=== PATIENT | male | born 1945 | race Caucasian/White ===

== ENCOUNTER 2019-01-19 08:07 | Inpatient (IN) | payer MEDICARE ==
[2019-01-17 11:15] LABS: BASOPHILS # (AUTO) 0.01 x10^3/uL (0-0.1); BASOPHILS % (AUTO) 0 % (0-1); EOSINOPHILS # (AUTO) 0.12 x10^3/uL (0-0.4); EOSINOPHILS % (AUTO) 2 % (1-7); LYMPHOCYTES # (AUTO) 1.39 x10^3/uL (1-3.4); LYMPHOCYTES % (AUTO) 22 % (22-44); MD NO; MEAN CORPUSCULAR HEMOGLOBIN 22.5 pg (27.5-34.5); MEAN CORPUSCULAR HGB CONC 31.5 g/dL (33.2-36.2); MEAN CORPUSCULAR VOLUME 71.3 fL (81-97); MEAN PLATELET VOLUME 10.4 fL (7.4-10.4); MONOCYTES # (AUTO) 0.75 x10^3/uL (0.2-0.8); MONOCYTES % (AUTO) 12 % (2-9); NEUTROPHILS # (AUTO) 4.13 x10^3/uL (1.8-6.8); NEUTROPHILS % (AUTO) 65 % (42-75); PLATELET COUNT 196 x10^3/uL (130-400); RED BLOOD COUNT 3.88 x10^6/uL (4.38-5.82); RED CELL DISTRIBUTION WIDTH 21.5 % (9.4-14.8)
[2019-01-17 11:27] LABS: ALANINE AMINOTRANSFERASE 21 U/L (12-78); ALBUMIN 3.4 g/dL (3.4-5.0); ANION GAP 7 mmol/L (5-15); CALCIUM 8.6 mg/dL (8.5-10.1); CHLORIDE 112 mmol/L (98-107)
[2019-01-17 11:30] LABS: ALKALINE PHOSPHATASE 85 U/L (45-117); BILIRUBIN,TOTAL 0.7 mg/dL (0.2-1.0); CREATININE 1.55 mg/dL (0.7-1.3); TOTAL PROTEIN 6.6 g/dL (6.4-8.2)
[~2019-01-19] VITALS: Ht 177.8 cm; Wt 105.4 kg
[~2019-01-19 08:07] MED LIST: ACET-1600 PO; AMIO100T4 PO; ASPI-496 PO; ATOR40TA78 PO; FINA5TAB4 PO; FURO20TA3 PO; HYDR-3342 PO; PANT40TA3 PO; WARF-36 PO; WARF2.5T32 PO
[2019-01-19] MEDS ORDERED: LACTATED RINGERS 1,000 ML IV SCH (08:47)
[2019-01-19 09:11] VITALS: BP 135/97
[2019-01-19] MEDS ORDERED: FENTANYL PF 250 MCG/5ML ONE (09:13)
[2019-01-19] MEDS ORDERED: MIDAZOLAM 1 MG/ML, 2ML ONE (09:13)
[2019-01-19] MEDS ORDERED: ACETAMINOPHEN 500 MG TABLET PO ONE (09:30)
[2019-01-19] MEDS ORDERED: GABAPENTIN 300 MG CAPSULE PO ONE (09:30)
[2019-01-19] MEDS ORDERED: BUPIVACAINE/PF-EPI 0.5% 1:200K ONE (10:09)
[2019-01-19] MEDS ORDERED: BUPIVACAINE/PF-EPI 0.5% 1:200K INFIL ONE (11:29)
[2019-01-19] MEDS ORDERED: SUGAMMADEX 200 MG/2 ML IVPush ONE (12:49)
[2019-01-19] MEDS ORDERED: FENTANYL PF 100 MCG/2ML ONE (13:03)
[2019-01-19] MEDS ORDERED: OXYcodone 5 MG/5 ML ORAL.SOL UDC ONE (13:03)
[2019-01-19] MEDS: FENTANYL PF 100 MCG/2ML IV PRN ×3 (13:09→13:30)
[2019-01-19] MEDS ORDERED: KETOROLAC 30 MG/1 ML IV PRN (13:30)
[2019-01-19] MEDS ORDERED: OXYcodone 5 MG/5 ML ORAL.SOL UDC PO PRN (13:30)
[2019-01-19] MEDS ORDERED: hydrALAzine 20 MG/ML, 1ML IV PRN (13:30)
[2019-01-19] MEDS ORDERED: ALBUTEROL SULFATE 2.5 MG/3 ML NPPB PRN (13:30)
[2019-01-19] MEDS ORDERED: METOCLOPRAMIDE 5 MG/ML, 2ML IV PRN (13:30)
[2019-01-19] MEDS ORDERED: PROMETHAZINE 25 MG/ML, 1ML IV PRN (13:30)
[2019-01-19] MEDS ORDERED: LABETALOL 5MG/ML, 20ML IV PRN (13:30)
[2019-01-19] MEDS ORDERED: HYDROmorphone 1 MG/ML, 1ML AMP IV PRN (13:30)
[2019-01-19] MEDS ORDERED: ONDANSETRON 2MG/ML, 2ML IVPush PRN (13:30)
[2019-01-19] MEDS ORDERED: MEPERIDINE/PF 25MG/0.5ML IVPush PRN (13:30)
[2019-01-19] MEDS ORDERED: DIPHENHYDRAMINE 25 MG CAPSULE PO PRN (14:30)
[2019-01-19] MEDS ORDERED: LORazepam 1MG TABLET PO PRN (14:30)
[2019-01-19] MEDS ORDERED: SCOPOLAMINE PATCH, 1.5MG PATCH.TD72 TD PRN (14:30)
[2019-01-19] MEDS ORDERED: DEXAMETHASONE 4 MG/ML, 1ML IVPush PRN (14:30)
[2019-01-19] MEDS ORDERED: LORazepam 2 MG/ML, 1ML IVPush PRN (14:30)
[2019-01-19] MEDS ORDERED: HALOPERIDOL 5 MG/ML IVPush PRN (14:30)
[2019-01-19] MEDS ORDERED: DIPHENHYDRAMINE 50 MG/ML, 1ML IVPush PRN (14:30)
[2019-01-19] MEDS ORDERED: SUCCINYLCHOLINE 20 MG/ML, 10ML ONE (15:00)
[2019-01-19] MEDS ORDERED: ONDANSETRON 2MG/ML, 2ML ONE (15:00)
[2019-01-19] MEDS ORDERED: CEFOTETAN 2 GM ONE (15:00)
[2019-01-19] MEDS ORDERED: ROCURONIUM 10MG/ML,5ML ONE (15:00)
[2019-01-19] MEDS ORDERED: PROPOFOL 10 MG/ML, 20ML ONE (15:00)
[2019-01-19] MEDS: ACETAMINOPHEN 500 MG TABLET PO SCH ×2 (16:12→21:51)
[2019-01-19] MEDS: LACTATED RINGERS 1,000 ML IV SCH (16:12)
[2019-01-19 19:38] VITALS: BP 149/62
[2019-01-19] MEDS: ATORVASTATIN 40 MG TABLET PO SCH (20:23)
[2019-01-19] MEDS: FINASTERIDE 5 MG TABLET PO SCH (20:23)
[2019-01-20 00:34] VITALS: BP 101/56
[2019-01-20] MEDS: OXYcodone IR 5MG TABLET PO PRN ×4 (05:47→21:10)
[2019-01-20] MEDS: ASPIRIN 81 MG TABLET EC PO SCH (05:47)
[2019-01-20] MEDS: ACETAMINOPHEN 500 MG TABLET PO SCH ×4 (05:47→23:52)
[2019-01-20 06:02] LABS: ANION GAP 6 mmol/L (5-15); CALCIUM 8.3 mg/dL (8.5-10.1); CHLORIDE 111 mmol/L (98-107); CREATININE 1.64 mg/dL (0.7-1.3)
[2019-01-20 06:18] LABS: BASOPHILS # (AUTO) 0.02 x10^3/uL (0-0.1); BASOPHILS % (AUTO) 0 % (0-1); EOSINOPHILS # (AUTO) 0.29 x10^3/uL (0-0.4); EOSINOPHILS % (AUTO) 3 % (1-7); LYMPHOCYTES # (AUTO) 0.89 x10^3/uL (1-3.4); LYMPHOCYTES % (AUTO) 9 % (22-44); MD NO; MEAN CORPUSCULAR HEMOGLOBIN 22.2 pg (27.5-34.5); MEAN CORPUSCULAR HGB CONC 31.7 g/dL (33.2-36.2); MEAN CORPUSCULAR VOLUME 70.1 fL (81-97); MEAN PLATELET VOLUME 10.4 fL (7.4-10.4); MONOCYTES # (AUTO) 0.83 x10^3/uL (0.2-0.8); MONOCYTES % (AUTO) 8 % (2-9); NEUTROPHILS # (AUTO) 8.19 x10^3/uL (1.8-6.8); NEUTROPHILS % (AUTO) 80 % (42-75); PLATELET COUNT 174 x10^3/uL (130-400); RED BLOOD COUNT 3.86 x10^6/uL (4.38-5.82)
[2019-01-20] MEDS: PANTOPROZOLE 40MG TABLET PO SCH (06:30)
[2019-01-20 08:25] VITALS: BP 123/64
[2019-01-20] MEDS: ENOXAPARIN 40 MG/0.4 ML SQ SCH (09:13)
[2019-01-20] MEDS: AMIODARONE 200 MG TABLET PO SCH (09:14)
[2019-01-20] MEDS: LACTATED RINGERS 1,000 ML IV SCH (11:53)
[2019-01-20 13:45] VITALS: BP 123/58
[2019-01-20 19:18] VITALS: BP 131/57
[2019-01-20] MEDS: ATORVASTATIN 40 MG TABLET PO SCH (20:41)
[2019-01-20] MEDS: FINASTERIDE 5 MG TABLET PO SCH (20:41)
[2019-01-21 01:53] VITALS: BP 119/61
[2019-01-21] MEDS: OXYcodone IR 5MG TABLET PO PRN ×2 (04:34→22:12)
[2019-01-21 05:47] LABS: BASOPHILS # (AUTO) 0.03 x10^3/uL (0-0.1); BASOPHILS % (AUTO) 0 % (0-1); EOSINOPHILS # (AUTO) 0.06 x10^3/uL (0-0.4); EOSINOPHILS % (AUTO) 1 % (1-7); LYMPHOCYTES # (AUTO) 1.12 x10^3/uL (1-3.4); LYMPHOCYTES % (AUTO) 12 % (22-44); MD NO; MEAN CORPUSCULAR HGB CONC 31.1 g/dL (33.2-36.2); MEAN CORPUSCULAR VOLUME 70.9 fL (81-97); MEAN PLATELET VOLUME 10.7 fL (7.4-10.4); MONOCYTES # (AUTO) 1.13 x10^3/uL (0.2-0.8); MONOCYTES % (AUTO) 12 % (2-9); NEUTROPHILS # (AUTO) 7.42 x10^3/uL (1.8-6.8); NEUTROPHILS % (AUTO) 76 % (42-75); PLATELET COUNT 182 x10^3/uL (130-400); RED BLOOD COUNT 3.87 x10^6/uL (4.38-5.82)
[2019-01-21 05:55] LABS: ANION GAP 7 mmol/L (5-15); CALCIUM 8.8 mg/dL (8.5-10.1); CHLORIDE 109 mmol/L (98-107); CREATININE 1.93 mg/dL (0.7-1.3)
[2019-01-21] MEDS: ASPIRIN 81 MG TABLET EC PO SCH (06:01)
[2019-01-21] MEDS: ACETAMINOPHEN 500 MG TABLET PO SCH ×3 (06:01→18:09)
[2019-01-21] MEDS: PANTOPROZOLE 40MG TABLET PO SCH (06:01)
[2019-01-21] MEDS: LACTATED RINGERS 1,000 ML IV SCH (06:02)
[2019-01-21 09:00] VITALS: BP 146/69
[2019-01-21] MEDS: ENOXAPARIN 40 MG/0.4 ML SQ SCH (09:26)
[2019-01-21] MEDS: AMIODARONE 200 MG TABLET PO SCH (09:26)
[2019-01-21] MEDS: D5%-0.45NACL+KCL 20MEQ 1,000 ML IV SCH ×2 (10:30→12:39)
[2019-01-21 14:06] VITALS: BP 135/70
[2019-01-21] MEDS ORDERED: SODIUM CHLORIDE 0.9%, 500ML IVBOLUS ONE (19:00)
[2019-01-21 20:00] VITALS: BP 136/67
[2019-01-21] MEDS: FINASTERIDE 5 MG TABLET PO SCH (20:10)
[2019-01-21] MEDS: ATORVASTATIN 40 MG TABLET PO SCH (20:10)
[2019-01-21] MEDS: ONDANSETRON 2MG/ML, 2ML IV PRN (20:11)
[2019-01-21] MEDS: HEPARIN 5,000 UNITS/ML, 1ML SQ SCH (22:12)
[2019-01-22] MEDS: ACETAMINOPHEN 500 MG TABLET PO SCH ×5 (00:04→23:36)
[2019-01-22 02:25] VITALS: BP 134/76
[2019-01-22 02:45] VITALS: BP 134/76
[2019-01-22] MEDS: ASPIRIN 81 MG TABLET EC PO SCH (05:49)
[2019-01-22] MEDS: OXYcodone IR 5MG TABLET PO PRN ×4 (05:49→18:04)
[2019-01-22] MEDS: PANTOPROZOLE 40MG TABLET PO SCH (05:49)
[2019-01-22] MEDS: HEPARIN 5,000 UNITS/ML, 1ML SQ SCH ×3 (05:50→21:08)
[2019-01-22 07:08] LABS: BASOPHILS # (AUTO) 0.02 x10^3/uL (0-0.1); BASOPHILS % (AUTO) 0 % (0-1); EOSINOPHILS # (AUTO) 0.04 x10^3/uL (0-0.4); EOSINOPHILS % (AUTO) 0 % (1-7); LYMPHOCYTES # (AUTO) 1.13 x10^3/uL (1-3.4); LYMPHOCYTES % (AUTO) 8 % (22-44); MD NO; MEAN CORPUSCULAR HEMOGLOBIN 21.5 pg (27.5-34.5); MEAN CORPUSCULAR HGB CONC 30.4 g/dL (33.2-36.2); MEAN CORPUSCULAR VOLUME 70.6 fL (81-97); MEAN PLATELET VOLUME 10.7 fL (7.4-10.4); MONOCYTES # (AUTO) 1.15 x10^3/uL (0.2-0.8); MONOCYTES % (AUTO) 8 % (2-9); NEUTROPHILS # (AUTO) 11.29 x10^3/uL (1.8-6.8); NEUTROPHILS % (AUTO) 83 % (42-75); PLATELET COUNT 204 x10^3/uL (130-400); RED BLOOD COUNT 4.05 x10^6/uL (4.38-5.82); RED CELL DISTRIBUTION WIDTH 21.9 % (9.4-14.8)
[2019-01-22] MEDS: D5%-0.45NACL+KCL 20MEQ 1,000 ML IV SCH ×2 (07:13→21:38)
[2019-01-22 07:16] LABS: ANION GAP 4 mmol/L (5-15); CALCIUM 8.4 mg/dL (8.5-10.1); CHLORIDE 108 mmol/L (98-107); CREATININE 2.03 mg/dL (0.7-1.3)
[2019-01-22 08:23] VITALS: BP 125/66
[2019-01-22] MEDS: AMIODARONE 200 MG TABLET PO SCH (08:23)
[2019-01-22] MEDS: MORPHINE SULFATE 4 MG/ML, 1ML IVPush PRN ×2 (08:37→15:52)
[2019-01-22 14:00] VITALS: BP 113/59
[2019-01-22 19:32] VITALS: BP 128/64
[2019-01-22] MEDS: FINASTERIDE 5 MG TABLET PO SCH (21:08)
[2019-01-22] MEDS: ATORVASTATIN 40 MG TABLET PO SCH (21:08)
[2019-01-23 01:39] VITALS: BP 122/88
[2019-01-23] MEDS: OXYcodone IR 5MG TABLET PO PRN ×3 (05:02→21:29)
[2019-01-23 05:25] LABS: MEAN CORPUSCULAR HEMOGLOBIN 21.7 pg (27.5-34.5); MEAN CORPUSCULAR HGB CONC 30.8 g/dL (33.2-36.2); MEAN CORPUSCULAR VOLUME 70.5 fL (81-97); MEAN PLATELET VOLUME 10.4 fL (7.4-10.4); PLATELET COUNT 194 x10^3/uL (130-400); RED BLOOD COUNT 3.81 x10^6/uL (4.38-5.82); RED CELL DISTRIBUTION WIDTH 22.4 % (9.4-14.8)
[2019-01-23 05:26] LABS: ANION GAP 5 mmol/L (5-15); CALCIUM 8.4 mg/dL (8.5-10.1); CHLORIDE 107 mmol/L (98-107); CREATININE 2.17 mg/dL (0.7-1.3)
[2019-01-23] MEDS: PANTOPROZOLE 40MG TABLET PO SCH (05:34)
[2019-01-23] MEDS: HEPARIN 5,000 UNITS/ML, 1ML SQ SCH ×3 (05:34→21:28)
[2019-01-23] MEDS: ACETAMINOPHEN 500 MG TABLET PO SCH ×3 (05:34→17:56)
[2019-01-23] MEDS: ASPIRIN 81 MG TABLET EC PO SCH (05:34)
[2019-01-23 05:58] LABS: BASOPHILS # (AUTO) 0.03 x10^3/uL (0-0.1); BASOPHILS % (AUTO) 0 % (0-1); EOSINOPHILS # (AUTO) 0.17 x10^3/uL (0-0.4); EOSINOPHILS % (AUTO) 1 % (1-7); LYMPHOCYTES # (AUTO) 1.08 x10^3/uL (1-3.4); LYMPHOCYTES % (AUTO) 9 % (22-44); MD SCAN; MONOCYTES # (AUTO) 1.09 x10^3/uL (0.2-0.8); MONOCYTES % (AUTO) 9 % (2-9); NEUTROPHILS # (AUTO) 10.03 x10^3/uL (1.8-6.8); NEUTROPHILS % (AUTO) 81 % (42-75)
[2019-01-23 07:30] VITALS: BP 152/74
[2019-01-23] MEDS: MORPHINE SULFATE 4 MG/ML, 1ML IVPush PRN (07:47)
[2019-01-23] MEDS: AMIODARONE 200 MG TABLET PO SCH (10:34)
[2019-01-23] MEDS: D5%-0.45NACL+KCL 20MEQ 1,000 ML IV SCH ×2 (10:41→22:01)
[2019-01-23 12:24] VITALS: BP 125/59
[2019-01-23 20:18] VITALS: BP 131/67
[2019-01-23] MEDS: FINASTERIDE 5 MG TABLET PO SCH (21:28)
[2019-01-23] MEDS: ATORVASTATIN 40 MG TABLET PO SCH (21:28)
[2019-01-24] MEDS: ACETAMINOPHEN 500 MG TABLET PO SCH ×3 (00:40→12:29)
[2019-01-24] MEDS: ONDANSETRON 2MG/ML, 2ML IV PRN (00:46)
[2019-01-24 03:39] VITALS: BP 154/63
[2019-01-24] MEDS: HEPARIN 5,000 UNITS/ML, 1ML SQ SCH ×3 (05:33→21:38)
[2019-01-24] MEDS: PANTOPROZOLE 40MG TABLET PO SCH ×2 (05:33→05:47)
[2019-01-24] MEDS: ASPIRIN 81 MG TABLET EC PO SCH (05:34)
[2019-01-24 05:51] LABS: MEAN CORPUSCULAR HEMOGLOBIN 21.8 pg (27.5-34.5); MEAN CORPUSCULAR HGB CONC 30.7 g/dL (33.2-36.2); MEAN CORPUSCULAR VOLUME 70.9 fL (81-97); MEAN PLATELET VOLUME 10.9 fL (7.4-10.4); PLATELET COUNT 208 x10^3/uL (130-400); RED BLOOD COUNT 3.86 x10^6/uL (4.38-5.82); RED CELL DISTRIBUTION WIDTH 21.8 % (9.4-14.8)
[2019-01-24 05:54] LABS: ANION GAP 7 mmol/L (5-15); CALCIUM 8.5 mg/dL (8.5-10.1); CHLORIDE 108 mmol/L (98-107); CREATININE 1.73 mg/dL (0.7-1.3)
[2019-01-24 06:23] LABS: BASOPHILS # (AUTO) 0.02 x10^3/uL (0-0.1); BASOPHILS % (AUTO) 0 % (0-1); EOSINOPHILS # (AUTO) 0.14 x10^3/uL (0-0.4); EOSINOPHILS % (AUTO) 1 % (1-7); LYMPHOCYTES # (AUTO) 0.94 x10^3/uL (1-3.4); LYMPHOCYTES % (AUTO) 9 % (22-44); MD SCAN; MONOCYTES # (AUTO) 1.22 x10^3/uL (0.2-0.8); MONOCYTES % (AUTO) 12 % (2-9); NEUTROPHILS # (AUTO) 8.22 x10^3/uL (1.8-6.8); NEUTROPHILS % (AUTO) 78 % (42-75)
[2019-01-24 06:51] VITALS: BP 132/56
[2019-01-24] MEDS: D5%-0.45NACL+KCL 20MEQ 1,000 ML IV SCH ×2 (07:04→22:32)
[2019-01-24] MEDS: AMIODARONE 200 MG TABLET PO SCH (09:33)
[2019-01-24 13:33] VITALS: BP 131/58
[2019-01-24] MEDS: MORPHINE SULFATE 4 MG/ML, 1ML IVPush PRN (16:09)
[2019-01-24 20:24] VITALS: BP 145/70
[2019-01-24] MEDS: ATORVASTATIN 40 MG TABLET PO SCH (21:38)
[2019-01-24] MEDS: FINASTERIDE 5 MG TABLET PO SCH (21:38)
[2019-01-25] MEDS: MORPHINE SULFATE 4 MG/ML, 1ML IVPush PRN ×3 (00:44→21:19)
[2019-01-25 02:35] VITALS: BP 135/59
[2019-01-25] MEDS: HEPARIN 5,000 UNITS/ML, 1ML SQ SCH ×3 (05:27→21:19)
[2019-01-25] MEDS: ASPIRIN 81 MG TABLET EC PO SCH (05:27)
[2019-01-25] MEDS: PANTOPROZOLE 40MG TABLET PO SCH (05:27)
[2019-01-25 05:34] LABS: BASOPHILS # (AUTO) 0.03 x10^3/uL (0-0.1); BASOPHILS % (AUTO) 0 % (0-1); EOSINOPHILS # (AUTO) 0.13 x10^3/uL (0-0.4); EOSINOPHILS % (AUTO) 1 % (1-7); LYMPHOCYTES # (AUTO) 0.94 x10^3/uL (1-3.4); LYMPHOCYTES % (AUTO) 9 % (22-44); MD NO; MEAN CORPUSCULAR HEMOGLOBIN 21.6 pg (27.5-34.5); MEAN CORPUSCULAR HGB CONC 30.7 g/dL (33.2-36.2); MEAN CORPUSCULAR VOLUME 70.3 fL (81-97); MONOCYTES # (AUTO) 1.21 x10^3/uL (0.2-0.8); MONOCYTES % (AUTO) 12 % (2-9); NEUTROPHILS % (AUTO) 78 % (42-75); PLATELET COUNT 204 x10^3/uL (130-400); RED BLOOD COUNT 3.63 x10^6/uL (4.38-5.82); RED CELL DISTRIBUTION WIDTH 21.8 % (9.4-14.8)
[2019-01-25 05:48] LABS: ANION GAP 6 mmol/L (5-15); CALCIUM 8.4 mg/dL (8.5-10.1); CHLORIDE 110 mmol/L (98-107)
[2019-01-25 05:49] LABS: CREATININE 1.59 mg/dL (0.7-1.3)
[2019-01-25 08:32] VITALS: BP 137/55
[2019-01-25] MEDS: D5%-0.45NACL+KCL 20MEQ 1,000 ML IV SCH ×2 (08:35→17:46)
[2019-01-25] MEDS: AMIODARONE 200 MG TABLET PO SCH (08:35)
[2019-01-25 13:45] VITALS: BP 138/53
[2019-01-25 21:12] VITALS: BP 142/53
[2019-01-25] MEDS: FINASTERIDE 5 MG TABLET PO SCH (21:19)
[2019-01-25] MEDS: ATORVASTATIN 40 MG TABLET PO SCH (21:19)
[2019-01-26] MEDS: OXYcodone IR 5MG TABLET PO PRN (00:29)
[2019-01-26 01:26] VITALS: BP 152/67
[2019-01-26] MEDS: D5%-0.45NACL+KCL 20MEQ 1,000 ML IV SCH ×2 (04:13→11:02)
[2019-01-26 04:45] LABS: BASOPHILS # (AUTO) 0.02 x10^3/uL (0-0.1); BASOPHILS % (AUTO) 0 % (0-1); EOSINOPHILS # (AUTO) 0.13 x10^3/uL (0-0.4); EOSINOPHILS % (AUTO) 1 % (1-7); LYMPHOCYTES % (AUTO) 11 % (22-44); MD NO; MEAN CORPUSCULAR HEMOGLOBIN 21.8 pg (27.5-34.5); MEAN CORPUSCULAR HGB CONC 30.9 g/dL (33.2-36.2); MEAN CORPUSCULAR VOLUME 70.4 fL (81-97); MONOCYTES % (AUTO) 11 % (2-9); NEUTROPHILS % (AUTO) 76 % (42-75); PLATELET COUNT 203 x10^3/uL (130-400); RED BLOOD COUNT 3.55 x10^6/uL (4.38-5.82)
[2019-01-26 04:57] LABS: ANION GAP 6 mmol/L (5-15); CALCIUM 8.3 mg/dL (8.5-10.1); CHLORIDE 109 mmol/L (98-107)
[2019-01-26 05:01] LABS: CREATININE 1.36 mg/dL (0.7-1.3)
[2019-01-26] MEDS: PANTOPROZOLE 40MG TABLET PO SCH (05:29)
[2019-01-26] MEDS: ASPIRIN 81 MG TABLET EC PO SCH (05:29)
[2019-01-26] MEDS: HEPARIN 5,000 UNITS/ML, 1ML SQ SCH ×3 (05:29→21:56)
[2019-01-26 07:25] VITALS: BP 150/62
[2019-01-26] MEDS: AMIODARONE 200 MG TABLET PO SCH (08:34)
[2019-01-26] MEDS: MORPHINE SULFATE 4 MG/ML, 1ML IVPush PRN ×2 (13:21→21:56)
[2019-01-26 14:23] VITALS: BP 149/59
[2019-01-26 17:01] VITALS: BP 145/56
[2019-01-26 21:34] VITALS: BP 157/62
[2019-01-26] MEDS: ATORVASTATIN 40 MG TABLET PO SCH (21:56)
[2019-01-26] MEDS: FINASTERIDE 5 MG TABLET PO SCH (21:56)
[2019-01-27 01:25] VITALS: BP 146/68
[2019-01-27] MEDS: MORPHINE SULFATE 4 MG/ML, 1ML IVPush PRN ×2 (02:48→16:24)
[2019-01-27] MEDS: ASPIRIN 81 MG TABLET EC PO SCH (05:25)
[2019-01-27] MEDS: HEPARIN 5,000 UNITS/ML, 1ML SQ SCH ×3 (05:25→21:30)
[2019-01-27] MEDS: PANTOPROZOLE 40MG TABLET PO SCH (05:25)
[2019-01-27] MEDS: D5%-0.45NACL+KCL 20MEQ 1,000 ML IV SCH (05:30)
[2019-01-27 05:31] LABS: CALCIUM 8.1 mg/dL (8.5-10.1); CHLORIDE 111 mmol/L (98-107)
[2019-01-27 05:33] LABS: MEAN CORPUSCULAR HEMOGLOBIN 22.5 pg (27.5-34.5); MEAN CORPUSCULAR HGB CONC 32.4 g/dL (33.2-36.2); MEAN CORPUSCULAR VOLUME 69.4 fL (81-97); MEAN PLATELET VOLUME 8.7 fL (7.4-10.4); PLATELET COUNT 191 x10^3/uL (130-400); RED BLOOD COUNT 3.66 x10^6/uL (4.38-5.82); RED CELL DISTRIBUTION WIDTH 22.2 % (9.4-14.8)
[2019-01-27 05:39] LABS: ANION GAP 5 mmol/L (5-15)
[2019-01-27 05:40] LABS: CREATININE 1.38 mg/dL (0.7-1.3)
[2019-01-27 05:52] LABS: BASOPHILS # (AUTO) 0.01 x10^3/uL (0-0.1); BASOPHILS % (AUTO) 0 % (0-1); EOSINOPHILS # (AUTO) 0.12 x10^3/uL (0-0.4); EOSINOPHILS % (AUTO) 1 % (1-7); LYMPHOCYTES # (AUTO) 0.85 x10^3/uL (1-3.4); LYMPHOCYTES % (AUTO) 9 % (22-44); MD MORPH REVIEW ONLY; MONOCYTES # (AUTO) 0.81 x10^3/uL (0.2-0.8); MONOCYTES % (AUTO) 9 % (2-9); NEUTROPHILS # (AUTO) 7.75 x10^3/uL (1.8-6.8); NEUTROPHILS % (AUTO) 81 % (42-75)
[2019-01-27 05:53] LABS: ANISOCYTOSIS 2+; MICROCYTOSIS 1+; OVALOCYTES 1+; POLYCHROMASIA 1+
[2019-01-27 05:54] LABS: HYPOCHROMIA 1+
[2019-01-27 05:56] LABS: <PLATELET ESTIMATE> ADEQUATE; <PLT MORPHOLOGY> NORMAL PLT MORPH
[2019-01-27 06:44] VITALS: BP 145/62
[2019-01-27] MEDS: AMIODARONE 200 MG TABLET PO SCH (09:48)
[2019-01-27 13:08] VITALS: BP 153/72
[2019-01-27] MEDS: FINASTERIDE 5 MG TABLET PO SCH (21:30)
[2019-01-27] MEDS: ATORVASTATIN 40 MG TABLET PO SCH (21:30)
[2019-01-27 21:40] VITALS: BP 146/52
[2019-01-28 01:15] VITALS: BP 150/67
[2019-01-28 04:55] LABS: MEAN CORPUSCULAR HEMOGLOBIN 22.3 pg (27.5-34.5); MEAN CORPUSCULAR HGB CONC 32.2 g/dL (33.2-36.2); MEAN CORPUSCULAR VOLUME 69.3 fL (81-97); MEAN PLATELET VOLUME 8.7 fL (7.4-10.4); PLATELET COUNT 218 x10^3/uL (130-400); RED BLOOD COUNT 3.74 x10^6/uL (4.38-5.82); RED CELL DISTRIBUTION WIDTH 22.1 % (9.4-14.8)
[2019-01-28 04:57] LABS: ANION GAP 6 mmol/L (5-15); CALCIUM 8.1 mg/dL (8.5-10.1); CHLORIDE 110 mmol/L (98-107)
[2019-01-28 04:58] LABS: CREATININE 1.36 mg/dL (0.7-1.3)
[2019-01-28 05:28] LABS: ANISOCYTOSIS 2+; BASOPHILS # (AUTO) 0.04 x10^3/uL (0-0.1); BASOPHILS % (AUTO) 0 % (0-1); EOSINOPHILS # (AUTO) 0.38 x10^3/uL (0-0.4); EOSINOPHILS % (AUTO) 5 % (1-7); LYMPHOCYTES # (AUTO) 1.05 x10^3/uL (1-3.4); LYMPHOCYTES % (AUTO) 13 % (22-44); MD MORPH REVIEW ONLY; MICROCYTOSIS 1+; MONOCYTES # (AUTO) 0.85 x10^3/uL (0.2-0.8); MONOCYTES % (AUTO) 10 % (2-9); NEUTROPHILS % (AUTO) 72 % (42-75); OVALOCYTES 1+; POLYCHROMASIA 1+
[2019-01-28 05:29] LABS: <PLATELET ESTIMATE> ADEQUATE; <PLT MORPHOLOGY> NORMAL PLT MORPH; HYPOCHROMIA 1+
[2019-01-28] MEDS: ASPIRIN 81 MG TABLET EC PO SCH (05:49)
[2019-01-28] MEDS: PANTOPROZOLE 40MG TABLET PO SCH (05:49)
[2019-01-28] MEDS: HEPARIN 5,000 UNITS/ML, 1ML SQ SCH ×2 (05:49→16:03)
[2019-01-28] MEDS: OXYcodone IR 5MG TABLET PO PRN ×2 (05:49→16:03)
[2019-01-28] MEDS: D5%-0.45NACL+KCL 20MEQ 1,000 ML IV SCH (06:01)
[2019-01-28 07:40] VITALS: BP 155/56
[2019-01-28] MEDS: AMIODARONE 200 MG TABLET PO SCH (07:41)
[2019-01-28] MEDS ORDERED: IBUP-1222 PO (14:06)
[2019-01-28 14:56] VITALS: BP 121/55
[2019-01-28 15:56] VITALS: BP 125/58
== END 2019-01-28 17:35 | disposition home or self-care (01) | DRG 330 ==
LOC: ORIP 08:07 → EDSTATUS 10:30 → 4NOR 13:53
PROVIDERS: ADMIT Surgery; ATTEND Colon & Rectal Surgery
PROC: 03HY32Z Insertion of Monitoring Device into Upper Artery, Percutaneous Approach (ICD-10-PCS; 2019-01-19)
PROC: 0DBF4ZZ Excision of Right Large Intestine, Percutaneous Endoscopic Approach (ICD-10-PCS; principal; 2019-01-19 10:30)
DX: C18.2 Malignant neoplasm of ascending colon (principal); K56.7 Ileus, unspecified; R71.0 Precipitous drop in hematocrit; M19.90 Unspecified osteoarthritis, unspecified site; E11.9 Type 2 diabetes mellitus without complications; E78.00 Pure hypercholesterolemia, unspecified; E66.9 Obesity, unspecified; I48.91 Unspecified atrial fibrillation; Z68.33 Body mass index [BMI] 33.0-33.9, adult
CPT/HCPCS: 36415; 74018; 74176; 80048; 80053; 82962; 83735; 85025; 86850; 86900; 86923; 88309; 93005; G0378; J1644; J1650; J2250; J2405; J2704; J3010; J0330; J3480; J3490; J7040; J7120

== ENCOUNTER 2019-04-10 10:57 | Day surgery (SDC) | payer MEDICARE ==
[~2019-04-10] VITALS: Ht 179.1 cm; Wt 103.6 kg
[~2019-04-10 10:57] MED LIST changes: +IBUP-1222 PO
[2019-04-10] MEDS ORDERED: LACTATED RINGERS 1,000 ML IV SCH (12:04)
[2019-04-10] MEDS ORDERED: ACETAMINOPHEN 500 MG TABLET PO ONE (12:05)
[2019-04-10 12:09] VITALS: BP 167/80
[2019-04-10 12:46] LABS: INTERNATIONAL NORMALIZED RATIO 1.02 (0.93-1.1); PROTHROMBIN TIME 10.7 Seconds (9.6-11.5)
[2019-04-10] MEDS ORDERED: HALOPERIDOL 5 MG/ML IV PRN ×2 (13:00)
[2019-04-10] MEDS ORDERED: DIPHENHYDRAMINE 50 MG/ML, 1ML IVPush PRN (13:00)
[2019-04-10] MEDS ORDERED: HYDROmorphone 2 MG/ML, 1ML IVPush PRN (13:00)
[2019-04-10] MEDS ORDERED: MEPERIDINE/PF 25MG/0.5ML IVPush PRN (13:00)
[2019-04-10] MEDS ORDERED: FENTANYL PF 100 MCG/2ML IV PRN (13:00)
[2019-04-10] MEDS ORDERED: METOPROLOL 1 MG/ML, 5ML IV PRN (13:00)
[2019-04-10] MEDS ORDERED: OXYcodone 5 MG/5 ML ORAL.SOL UDC PO PRN (13:00)
[2019-04-10] MEDS ORDERED: LABETALOL 5MG/ML, 20ML IV PRN (13:00)
[2019-04-10] MEDS ORDERED: PROMETHAZINE 25 MG/ML, 1ML IV PRN (13:00)
[2019-04-10] MEDS ORDERED: PROCHLORPERAZINE 5 MG/ML, 2ML IV PRN (13:00)
[2019-04-10] MEDS ORDERED: FENTANYL PF 100 MCG/2ML ONE ×2 (13:05→13:34)
[2019-04-10] MEDS ORDERED: ROCURONIUM 10MG/ML,5ML ONE (14:17)
[2019-04-10] MEDS ORDERED: SUCCINYLCHOLINE 20 MG/ML, 10ML ONE (14:17)
[2019-04-10] MEDS ORDERED: NEOSTIGMINE 1 MG/ML, 10ML ONE (14:17)
[2019-04-10] MEDS ORDERED: GLYCOPYRROLATE 0.2MG/1ML, 5ML ONE (14:17)
[2019-04-10] MEDS ORDERED: CEFAZOLIN 1,000 MG ONE (14:17)
[2019-04-10] MEDS ORDERED: PROPOFOL 10 MG/ML, 20ML ONE (14:17)
[2019-04-10] MEDS ORDERED: ONDANSETRON 2MG/ML, 2ML ONE (14:17)
[2019-04-10] MEDS ORDERED: DEXAMETHASONE 4 MG/ML, 1ML ONE (14:17)
[2019-04-10] MEDS ORDERED: hydrALAzine 20 MG/ML, 1ML ONE ×2 (14:39→15:31)
[2019-04-10] MEDS: hydrALAzine 20 MG/ML, 1ML IV PRN ×2 (14:41→15:33)
[2019-04-10] MEDS ORDERED: AMIODARONE 200 MG TABLET PO ONE (16:30)
== END 2019-04-10 18:00 | disposition home or self-care (01) ==
LOC: OR 10:57
PROVIDERS: ATTEND Urology
DX: N21.0 Calculus in bladder (principal); N40.1 Benign prostatic hyperplasia with lower urinary tract symptoms; N39.498 Other specified urinary incontinence; R35.1 Nocturia; R33.8 Other retention of urine; R39.12 Poor urinary stream; C18.9 Malignant neoplasm of colon, unspecified; I10 Essential (primary) hypertension; E78.00 Pure hypercholesterolemia, unspecified; I25.10 Atherosclerotic heart disease of native coronary artery without angina pectoris; I25.2 Old myocardial infarction; I48.0 Paroxysmal atrial fibrillation; E11.9 Type 2 diabetes mellitus without complications; Z79.84 Long term (current) use of oral hypoglycemic drugs; Z79.82 Long term (current) use of aspirin; Z79.01 Long term (current) use of anticoagulants; Z79.899 Other long term (current) drug therapy; Z87.891 Personal history of nicotine dependence; Z95.5 Presence of coronary angioplasty implant and graft; Z98.890 Other specified postprocedural states
CPT/HCPCS: 36415; 52214; 52317; 82360; 82962; 85610; 88300; 93005; C1726; J0330; J0360; J0690; J1100; J2405; J2704; J2710; J3010; J7120

== ENCOUNTER 2020-03-25 15:08 | Outpatient (CLI) | payer MEDICARE ==
[~2020-03-25 15:08] MED LIST changes: +ASPI-515 PO; +METO25TA35 PO; +VALS80TA30 PO
== END 2020-03-25 23:59 | disposition home or self-care (01) ==
LOC: CVU 15:08
PROVIDERS: ATTEND Internal Medicine Clinical Cardiac Electrophysiology
DX: I08.8 Other rheumatic multiple valve diseases (principal); I48.0 Paroxysmal atrial fibrillation; I10 Essential (primary) hypertension
CPT/HCPCS: 93306

== ENCOUNTER 2020-04-30 02:13 | Observation (INO) | payer MEDICARE ==
[~2020-04-30] VITALS: Ht 177.8 cm; Wt 104.0 kg
[2020-04-30] MEDS ORDERED: SODIUM CHLORIDE FLUSH 10ML SYR IVF ONE (02:30)
[2020-04-30] MEDS ORDERED: PROPOFOL 10 MG/ML, 20ML ONE (02:39)
[2020-04-30 02:48] LABS: BASOPHILS # (AUTO) 0.03 x10^3/uL (0-0.1); BASOPHILS % (AUTO) 0 % (0-1); EOSINOPHILS # (AUTO) 0.09 x10^3/uL (0-0.4); EOSINOPHILS % (AUTO) 1 % (1-7); LYMPHOCYTES # (AUTO) 2.21 x10^3/uL (1-3.4); LYMPHOCYTES % (AUTO) 23 % (22-44); MD NO; MEAN CORPUSCULAR HEMOGLOBIN 29.8 pg (27.5-34.5); MEAN CORPUSCULAR HGB CONC 32.7 g/dL (33.2-36.2); MEAN CORPUSCULAR VOLUME 91.1 fL (81-97); MEAN PLATELET VOLUME 9.6 fL (7.4-10.4); MONOCYTES # (AUTO) 0.72 x10^3/uL (0.2-0.8); MONOCYTES % (AUTO) 8 % (2-9); NEUTROPHILS # (AUTO) 6.62 x10^3/uL (1.8-6.8); NEUTROPHILS % (AUTO) 68 % (42-75); PLATELET COUNT 126 x10^3/uL (130-400); RED BLOOD COUNT 4.97 x10^6/uL (4.38-5.82); RED CELL DISTRIBUTION WIDTH 15.6 % (9.4-14.8)
[2020-04-30 02:59] LABS: ALANINE AMINOTRANSFERASE 31 U/L (12-78); ALBUMIN 3.3 g/dL (3.4-5.0); ANION GAP 7 mmol/L (5-15); CALCIUM 8.3 mg/dL (8.5-10.1); CHLORIDE 118 mmol/L (98-107); CREATININE 1.44 mg/dL (0.7-1.3); INTERNATIONAL NORMALIZED RATIO 1.73 (0.93-1.1); PROTHROMBIN TIME 18.4 Seconds (9.6-11.5)
[2020-04-30] MEDS ORDERED: HEPARIN 5,000 UNITS/ML, 1ML IV ONE (03:00)
[2020-04-30] MEDS ORDERED: PROPOFOL 10 MG/ML, 20ML IVPush ONE (03:00)
[2020-04-30] MEDS ORDERED: HEPARIN 25,000 UNITS/250ML PMX 250 ML IV PRN ×2 (03:00→10:30)
[2020-04-30 03:03] LABS: ALKALINE PHOSPHATASE 90 U/L (45-117); BILIRUBIN,TOTAL 0.8 mg/dL (0.2-1.0); TOTAL PROTEIN 6.8 g/dL (6.4-8.2); TROPONIN I 0.069 ng/mL (0.000-0.045)
--- NOTE | 2020-04-30 03:03 | NUR ---
TRIAGE EDITED TO CHANGE PT WEIGHT ONLY.
--- NOTE | 2020-04-30 03:05 | NUR ---
THIS PT WAS SENT FROM [facility] FOR AFIB RVR. PT PRESENTED THERE WITH HR IN THE 170S AND WAS GIVEN ADENOSINE THERE. ON ARRIVAL HERE THE PT'S HR HAS BEEN BETWEEN 1-TEENS AND 140S. PT STATES HE FEELS "SLIGHTLY SOB" NO OTHER S/SX. PT IS CALM, CONVERSING AND ALL QUESTIONS ABOUT POC HAVE BEEN ANSWERED. PT IS CONNECTED TO CARDIAC, BP, O2 MONITORS, SITTING IN BED, POSITIONED TO COMFORT.
[2020-04-30] MEDS ORDERED: HEPARIN 5,000 UNITS/ML, 1ML ONE (04:22)
[2020-04-30] MEDS ORDERED: HEPARIN 25,000 UNITS/250ML PMX 250 ML ONE (04:22)
[2020-04-30] MEDS ORDERED: ASPIRIN 325 MG TABLET ONE (04:22)
[2020-04-30] MEDS ORDERED: ACETAMINOPHEN 500 MG TABLET PO PRN (04:30)
[2020-04-30] MEDS ORDERED: ASPIRIN 325 MG TABLET PO ONE (04:30)
[2020-04-30] MEDS ORDERED: hydrALAzine 20 MG/ML, 1ML IVPush PRN (05:00)
[2020-04-30] MEDS ORDERED: ONDANSETRON 2MG/ML, 2ML IVPush PRN (05:00)
[2020-04-30] MEDS ORDERED: METHOCARBAMOL 500 MG TABLET PO PRN (05:00)
[2020-04-30] MEDS ORDERED: OXYcodone/APAP 5/325MG TABLET PO PRN (05:00)
[2020-04-30] MEDS ORDERED: ACETAMINOPHEN 325 MG TABLET PO PRN (05:00)
[2020-04-30] MEDS ORDERED: DOCUSATE 100 MG CAPSULE PO PRN (05:00)
[2020-04-30] MEDS ORDERED: KETOROLAC 30 MG/1 ML IM PRN (05:00)
[2020-04-30] MEDS ORDERED: TEMAZEPAM 15 MG CAPSULE PO PRN (05:00)
[2020-04-30] MEDS ORDERED: morphine SULFATE 10 MG/ML, 1ML IVPush PRN (05:00)
[2020-04-30] MEDS ORDERED: SODIUM CHLORIDE 0.9% 1,000 ML IV SCH (05:00)
--- NOTE | 2020-04-30 05:07 | NUR ---
REPORT GIVEN TO JHON HANKINS RN.
[2020-04-30 05:30] VITALS: BP 126/72
[2020-04-30 06:56] VITALS: BP 151/76
[2020-04-30] MEDS ORDERED: FUROSEMIDE 20 MG TABLET PO SCH (09:00)
[2020-04-30] MEDS ORDERED: VALSARTAN 80 MG TABLET PO SCH (09:00)
[2020-04-30] MEDS ORDERED: HEPARIN 5,000 UNITS/ML, 1ML IV PRN (10:30)
[2020-04-30 12:35] LABS: TROPONIN I 0.058 ng/mL (0.000-0.045)
[2020-04-30 12:55] VITALS: BP 150/69
[2020-04-30] MEDS ORDERED: ATORVASTATIN 40 MG TABLET PO SCH (21:00)
[2020-04-30] MEDS ORDERED: FINASTERIDE 5 MG TABLET PO SCH (21:00)
== END 2020-04-30 13:50 | disposition home or self-care (01) ==
LOC: ED 03:09 → INTOOBSV 04:37 → EDIP 04:37 → 5SO 05:27 → DCLOUNGE 13:42
PROVIDERS: ADMIT Internal Medicine; ATTEND Internal Medicine
DX: I48.20 Chronic atrial fibrillation, unspecified (principal); I10 Essential (primary) hypertension; E78.5 Hyperlipidemia, unspecified; N40.0 Benign prostatic hyperplasia without lower urinary tract symptoms; I25.10 Atherosclerotic heart disease of native coronary artery without angina pectoris; E87.8 Other disorders of electrolyte and fluid balance, not elsewhere classified; N17.9 Acute kidney failure, unspecified; I21.4 Non-ST elevation (NSTEMI) myocardial infarction; I21.9 Acute myocardial infarction, unspecified; I49.3 Ventricular premature depolarization; I48.0 Paroxysmal atrial fibrillation; Z79.899 Other long term (current) drug therapy; Z85.038 Personal history of other malignant neoplasm of large intestine; Z87.891 Personal history of nicotine dependence; Z95.5 Presence of coronary angioplasty implant and graft; Z87.442 Personal history of urinary calculi; Z79.82 Long term (current) use of aspirin; Z98.1 Arthrodesis status
CPT/HCPCS: 36415; 80053; 83880; 84443; 84484; 85025; 85520; 85610; 85730; 93005; 96361; 96374; 99291; G0378; J1644; J7030

== ENCOUNTER 2020-05-03 10:23 | Day surgery (SDC) | payer MEDICARE ==
[~2020-05-03] VITALS: Ht 177.8 cm; Wt 100.0 kg
[2020-05-03] MEDS ORDERED: SODIUM CHLORIDE 0.9% 1,000 ML IV SCH (10:44)
[2020-05-03] MEDS ORDERED: WARF2.5T32 PO (11:01)
[2020-05-03] MEDS ORDERED: WARF-36 PO (11:02)
[2020-05-03] MEDS ORDERED: ASPI81TA45 PO (11:04)
[2020-05-03 11:06] VITALS: BP 171/87
[2020-05-03 12:07] LABS: INTERNATIONAL NORMALIZED RATIO 1.03 (0.93-1.1); PROTHROMBIN TIME 10.9 Seconds (9.6-11.5)
[2020-05-03] MEDS ORDERED: LIDOCAINE 2%, 20ML ONE (12:52)
[2020-05-03] MEDS ORDERED: ISOPROTERENOL 0.2MG/ML, 5ML ONE (12:52)
[2020-05-03] MEDS ORDERED: MIDAZOLAM 1 MG/ML, 2ML ONE (13:03)
[2020-05-03] MEDS ORDERED: FENTANYL PF 250 MCG/5ML ONE (13:04)
[2020-05-03] MEDS ORDERED: DEXAMETHASONE 4 MG/ML, 1ML ONE ×2 (13:05)
[2020-05-03] MEDS ORDERED: PROPOFOL 10 MG/ML, 20ML ONE (13:08)
[2020-05-03] MEDS ORDERED: ROCURONIUM 10 MG/ML,10ML ONE (13:08)
[2020-05-03] MEDS ORDERED: SUCCINYLCHOLINE 20 MG/ML, 10ML ONE (13:08)
[2020-05-03] MEDS ORDERED: EPHEDRINE 50 MG/ML, 1ML ONE (13:23)
[2020-05-03] MEDS ORDERED: GLYCOPYRROLATE 0.2MG/1ML, 5ML ONE (13:34)
[2020-05-03] MEDS ORDERED: VERAPAMIL 2.5 MG/ML, 2ML ONE (13:51)
[2020-05-03] MEDS ORDERED: MEPERIDINE/PF 25MG/0.5ML IVPush PRN (15:00)
[2020-05-03] MEDS ORDERED: MIDAZOLAM 1 MG/ML, 2ML IV PRN (15:00)
[2020-05-03] MEDS ORDERED: ACETAMINOPHEN 325 MG TABLET PO PRN (15:00)
[2020-05-03] MEDS ORDERED: DIAZEPAM 5 MG/ML, 2ML IVPush PRN (15:00)
[2020-05-03] MEDS ORDERED: ALBUTEROL SULFATE 2.5 MG/3 ML NPPB PRN (15:00)
[2020-05-03] MEDS ORDERED: ONDANSETRON 2MG/ML, 2ML IVPush PRN (15:00)
[2020-05-03] MEDS ORDERED: DIPHENHYDRAMINE 50 MG/ML, 1ML IVPush PRN (15:00)
[2020-05-03] MEDS ORDERED: EPHEDRINE 50 MG/ML, 1ML IVPush PRN (15:00)
[2020-05-03] MEDS ORDERED: HYDROmorphone 1 MG/ML, 1ML INJ IVPush PRN (15:00)
[2020-05-03] MEDS ORDERED: hydrALAzine 20 MG/ML, 1ML IV PRN (15:00)
[2020-05-03] MEDS ORDERED: OXYcodone 5 MG/5 ML ORAL.SOL UDC PO PRN (15:00)
[2020-05-03] MEDS ORDERED: PROMETHAZINE 12.5 MG SUPP PR PRN (15:00)
[2020-05-03] MEDS ORDERED: FENTANYL PF 100 MCG/2ML IV PRN (15:00)
[2020-05-03] MEDS ORDERED: PROMETHAZINE 25 MG/ML, 1ML IVPush PRN (15:00)
[2020-05-03] MEDS ORDERED: LABETALOL 5MG/ML, 20ML IV PRN (15:00)
[2020-05-03 21:04] VITALS: BP 167/88
[2020-05-03 21:14] VITALS: BP 179/83
[2020-05-03] MEDS ORDERED: METOPROLOL TARTRATE 50 MG TAB PO ONE (22:30)
[2020-05-03] MEDS ORDERED: VALSARTAN 80 MG TABLET PO ONE (22:30)
== END 2020-05-03 22:30 | disposition home or self-care (01) ==
LOC: CACL 10:23 → 5SO 16:37 → CACL 22:30
PROVIDERS: ATTEND Internal Medicine Cardiovascular Disease
DX: I49.3 Ventricular premature depolarization (principal); Z11.59 Encounter for screening for other viral diseases; I25.10 Atherosclerotic heart disease of native coronary artery without angina pectoris; I48.19 Other persistent atrial fibrillation; I48.92 Unspecified atrial flutter; I25.5 Ischemic cardiomyopathy; E11.22 Type 2 diabetes mellitus with diabetic chronic kidney disease; I12.9 Hypertensive chronic kidney disease with stage 1 through stage 4 chronic kidney disease, or unspecified chronic kidney disease; N18.9 Chronic kidney disease, unspecified; E78.5 Hyperlipidemia, unspecified; G47.33 Obstructive sleep apnea (adult) (pediatric); Z79.01 Long term (current) use of anticoagulants; Z79.82 Long term (current) use of aspirin; Z79.899 Other long term (current) drug therapy; Z85.038 Personal history of other malignant neoplasm of large intestine; Z95.5 Presence of coronary angioplasty implant and graft
CPT/HCPCS: 36415; 71046; 85610; 87635; 93005; 93620; C1730; C1894; J0330; J1100; J2250; J2704; J3010; 93613; G0378

== ENCOUNTER 2020-06-28 06:03 | Day surgery (SDC) | payer MEDICARE ==
[~2020-06-28] VITALS: Ht 177.8 cm; Wt 100.0 kg
[~2020-06-28 06:03] MED LIST changes: +ASPI81TA45 PO
[2020-06-28] MEDS ORDERED: SODIUM CHLORIDE 0.9% 1,000 ML IV SCH (06:30)
[2020-06-28 06:57] VITALS: BP 102/82
[2020-06-28] MEDS ORDERED: VALS40TA2 PO (07:02)
[2020-06-28] MEDS ORDERED: MEXI150C PO (07:02)
[2020-06-28 07:11] LABS: ANION GAP 9 mmol/L (5-15); CALCIUM 8.6 mg/dL (8.5-10.1); CHLORIDE 114 mmol/L (98-107)
[2020-06-28 07:41] LABS: INTERNATIONAL NORMALIZED RATIO 2.23 (0.93-1.1); PROTHROMBIN TIME 23.2 Seconds (9.6-11.5)
[2020-06-28] MEDS ORDERED: PROPOFOL 10 MG/ML, 20ML ONE (07:48)
== END 2020-06-28 10:19 | disposition home or self-care (01) ==
LOC: CACL 06:03
PROVIDERS: ATTEND Internal Medicine Clinical Cardiac Electrophysiology
DX: I48.19 Other persistent atrial fibrillation (principal); Z20.828 Contact with and (suspected) exposure to other viral communicable diseases; I34.0 Nonrheumatic mitral (valve) insufficiency; E11.22 Type 2 diabetes mellitus with diabetic chronic kidney disease; I12.9 Hypertensive chronic kidney disease with stage 1 through stage 4 chronic kidney disease, or unspecified chronic kidney disease; N18.9 Chronic kidney disease, unspecified; E78.5 Hyperlipidemia, unspecified; Z79.82 Long term (current) use of aspirin; Z79.01 Long term (current) use of anticoagulants; Z79.899 Other long term (current) drug therapy; Z85.038 Personal history of other malignant neoplasm of large intestine; Z95.5 Presence of coronary angioplasty implant and graft
CPT/HCPCS: 36415; 80048; 85610; 87635; 92960; 93005; 93312; 93321; 93325; J2704

== ENCOUNTER 2020-07-12 15:31 | Inpatient (IN) | payer MEDICARE ==
[~2020-07-12] VITALS: Ht 177.8 cm; Wt 98.7 kg
[~2020-07-12 15:31] MED LIST changes: +MEXI150C PO; +VALS40TA2 PO
--- NOTE | 2020-07-12 15:51 | NUR ---
BIB EMS FROM [place], PT WITH RECENT ADMISSION FOR AFIB WITH RVR, RATES UP TO 195. PT DISCHARGED HOME YESTERDAY WITH DIGOXIN, PT STATES HE STILL HAVING PALPITATIONS AND DIZZINESS. PT SCHEDULED TO HAVE ABLATION 07/29\ PT TO CARD MONITOR, BP, CONT PULSE OX, ERP IN TO EVAL PT
--- NOTE | 2020-07-12 16:29 | NUR ---
TASK RN, ASSISTING PRIMARY. VERBAL ORDER OBTAINED FROM ERP FOR EKG. EKG COMPLETED, PROVIDED TO DR BELCHER.
[2020-07-12] MEDS ORDERED: SODIUM CHLORIDE FLUSH 10ML SYR IVF ONE (16:30)
[2020-07-12 16:35] LABS: BASOPHILS # (AUTO) 0.03 x10^3/uL (0-0.1); BASOPHILS % (AUTO) 0 % (0-1); EOSINOPHILS # (AUTO) 0.05 x10^3/uL (0-0.4); EOSINOPHILS % (AUTO) 1 % (1-7); LYMPHOCYTES # (AUTO) 1.98 x10^3/uL (1-3.4); LYMPHOCYTES % (AUTO) 27 % (22-44); MD NO; MEAN CORPUSCULAR HEMOGLOBIN 30.9 pg (27.5-34.5); MEAN CORPUSCULAR HGB CONC 32.7 g/dL (33.2-36.2); MEAN CORPUSCULAR VOLUME 94.3 fL (81-97); MEAN PLATELET VOLUME 9.8 fL (7.4-10.4); MONOCYTES # (AUTO) 0.57 x10^3/uL (0.2-0.8); MONOCYTES % (AUTO) 8 % (2-9); NEUTROPHILS # (AUTO) 4.81 x10^3/uL (1.8-6.8); NEUTROPHILS % (AUTO) 65 % (42-75); PLATELET COUNT 125 x10^3/uL (130-400); RED BLOOD COUNT 4.83 x10^6/uL (4.38-5.82); RED CELL DISTRIBUTION WIDTH 14.1 % (9.4-14.8)
--- NOTE | 2020-07-12 16:36 | NUR ---
LATE ENTRY: PT WITH HR 140-150 SUSTAINED. EKG SH[address] SVT. DR BARTON AT BEDSIDE, ADENOSINE 6MG GIVEN 1635, NO EFFECT ON SVT RHYTHM. 12MG ADENOSINE ADMIN PER MD ORDER 1636. PT TOLERATED WELL, NOW BACK TO SR 60S.
[2020-07-12 16:42] LABS: ALBUMIN 3.3 g/dL (3.4-5.0); ANION GAP 7 mmol/L (5-15); CALCIUM 8.4 mg/dL (8.5-10.1); CHLORIDE 113 mmol/L (98-107); CREATININE 1.35 mg/dL (0.7-1.3)
[2020-07-12 16:46] LABS: TROPONIN I 0.069 ng/mL (0.000-0.045)
[2020-07-12] MEDS ORDERED: ADENOSINE 6 MG/2 ML IVPush ONE ×2 (17:00)
[2020-07-12 17:01] LABS: INTERNATIONAL NORMALIZED RATIO 2.54 (0.93-1.1); PROTHROMBIN TIME 26.4 Seconds (9.6-11.5)
--- NOTE | 2020-07-12 17:21 | NUR ---
MED REQUEST SENT TO PHARMACY, NAD NOTED, AT BEDSIDE. PT REMAINS SR 60S
--- NOTE | 2020-07-12 18:06 | NUR ---
REPORT GIVEN TO RECROMEL CAMPOS
[2020-07-12] MEDS ORDERED: morphine SULFATE 10 MG/ML, 1ML IVPush PRN (18:30)
[2020-07-12] MEDS ORDERED: MELATONIN 5 MG TABLET PO PRN (18:30)
[2020-07-12] MEDS ORDERED: BISACODYL 10 MG SUPP PR PRN (18:30)
[2020-07-12] MEDS ORDERED: POLYETHYLENE GLYCOL 17 GM PACKET PO PRN (18:30)
[2020-07-12] MEDS ORDERED: ACETAMINOPHEN 325 MG TABLET PO PRN (18:30)
[2020-07-12] MEDS ORDERED: ONDANSETRON 2MG/ML, 2ML IVPush PRN (18:30)
[2020-07-12 18:48] VITALS: BP 168/93
[2020-07-12] MEDS: SOTALOL 80MG TABLET PO SCH (19:39)
[2020-07-12 19:51] VITALS: BP 175/96
[2020-07-12] MEDS ORDERED: ATORVASTATIN 40 MG TABLET PO SCH (21:00)
[2020-07-12 21:33] VITALS: BP 156/73
[2020-07-12] MEDS ORDERED: DIGO125T10 PO (21:40)
[2020-07-12 23:57] LABS: TROPONIN I 0.066 ng/mL (0.000-0.045)
[2020-07-13 00:42] VITALS: BP 154/85
[2020-07-13 05:41] LABS: INTERNATIONAL NORMALIZED RATIO 2.22 (0.93-1.1)
[2020-07-13 06:03] LABS: ANION GAP 7 mmol/L (5-15); CALCIUM 8.7 mg/dL (8.5-10.1); CHLORIDE 113 mmol/L (98-107)
[2020-07-13 06:09] LABS: CHOL/HDL RATIO 4.2; CHOLESTEROL, TOTAL 137 mg/dL (140-239); CREATININE 1.41 mg/dL (0.7-1.3); HDL CHOL % 24 % (26-37); HDL CHOLESTEROL (DIRECT) 33 mg/dL (40-60); LDL CHOLESTEROL,CALCULATED 32 mg/dL (54-169); TRIGLYCERIDES 361 mg/dL (50-200); TROPONIN I 0.057 ng/mL (0.000-0.045); VLDL CHOLESTEROL 72 mg/dL (0-25)
[2020-07-13 07:54] VITALS: BP 154/89
[2020-07-13] MEDS: SENNA/DOCUSATE TABLET PO SCH (09:00)
[2020-07-13] MEDS: SOTALOL 80MG TABLET PO SCH ×2 (09:02→20:21)
[2020-07-13] MEDS: FUROSEMIDE 20 MG TABLET PO SCH (09:02)
[2020-07-13] MEDS: AMLODIPINE 5 MG TABLET PO SCH (09:02)
[2020-07-13] MEDS: ASPIRIN 81 MG TABLET EC PO SCH (09:02)
[2020-07-13 13:46] VITALS: BP 152/81
[2020-07-13 19:22] VITALS: BP 154/73
[2020-07-13] MEDS: ATORVASTATIN 80 MG TABLET PO SCH (20:20)
[2020-07-14 00:32] VITALS: BP 177/62
[2020-07-14 02:30] VITALS: BP 153/58
[2020-07-14 05:39] LABS: INTERNATIONAL NORMALIZED RATIO 1.62 (0.93-1.1); PROTHROMBIN TIME 16.8 Seconds (9.6-11.5)
[2020-07-14 05:47] LABS: ANION GAP 7 mmol/L (5-15); CALCIUM 8.7 mg/dL (8.5-10.1); CHLORIDE 110 mmol/L (98-107); CREATININE 1.42 mg/dL (0.7-1.3)
[2020-07-14 06:55] VITALS: BP 176/81
[2020-07-14] MEDS: AMLODIPINE 5 MG TABLET PO SCH (07:15)
[2020-07-14] MEDS: SOTALOL 80MG TABLET PO SCH ×2 (08:35→17:24)
[2020-07-14] MEDS: ASPIRIN 81 MG TABLET EC PO SCH (08:35)
[2020-07-14] MEDS: FUROSEMIDE 20 MG TABLET PO SCH (08:35)
[2020-07-14] MEDS: SENNA/DOCUSATE TABLET PO SCH (08:36)
[2020-07-14 12:12] VITALS: BP 163/92
[2020-07-14 20:03] VITALS: BP 121/65
[2020-07-14] MEDS: ATORVASTATIN 80 MG TABLET PO SCH (20:05)
[2020-07-14] MEDS: APIXABAN 5 MG TABLET PO SCH (20:05)
[2020-07-15 02:53] VITALS: BP 125/73
[2020-07-15 05:07] LABS: INTERNATIONAL NORMALIZED RATIO 1.35 (0.93-1.1); PROTHROMBIN TIME 13.9 Seconds (9.6-11.5)
[2020-07-15 06:59] VITALS: BP 162/81
[2020-07-15] MEDS ORDERED: ATOR-2 PO (08:01)
[2020-07-15] MEDS ORDERED: SOTA80TA18 PO (08:01)
[2020-07-15] MEDS ORDERED: AMLO-150 PO (08:01)
[2020-07-15] MEDS ORDERED: FURO20TA3 PO (08:01)
[2020-07-15] MEDS ORDERED: APIX5TAB PO (08:01)
[2020-07-15] MEDS: AMLODIPINE 5 MG TABLET PO SCH (08:37)
[2020-07-15] MEDS: SENNA/DOCUSATE TABLET PO SCH (08:38)
[2020-07-15] MEDS: SOTALOL 80MG TABLET PO SCH (08:38)
[2020-07-15] MEDS: FUROSEMIDE 20 MG TABLET PO SCH (08:38)
[2020-07-15] MEDS: APIXABAN 5 MG TABLET PO SCH (08:38)
== END 2020-07-15 11:33 | disposition home or self-care (01) | DRG 309 ==
LOC: ED 16:09 → EDIP 16:49 → 5SO 18:39 → DCLOUNGE 07-15 11:22
PROVIDERS: ADMIT Internal Medicine; ATTEND Internal Medicine
DX: I47.1 Supraventricular tachycardia (principal); I13.0 Hypertensive heart and chronic kidney disease with heart failure and stage 1 through stage 4 chronic kidney disease, or unspecified chronic kidney disease; D68.69 Other thrombophilia; E44.1 Mild protein-calorie malnutrition; I50.42 Chronic combined systolic (congestive) and diastolic (congestive) heart failure; I48.0 Paroxysmal atrial fibrillation; I49.3 Ventricular premature depolarization; E78.1 Pure hyperglyceridemia; E78.5 Hyperlipidemia, unspecified; G47.30 Sleep apnea, unspecified; I25.10 Atherosclerotic heart disease of native coronary artery without angina pectoris; I25.5 Ischemic cardiomyopathy; E11.65 Type 2 diabetes mellitus with hyperglycemia; N18.9 Chronic kidney disease, unspecified; T45.515A Adverse effect of anticoagulants, initial encounter; E11.22 Type 2 diabetes mellitus with diabetic chronic kidney disease; I25.2 Old myocardial infarction; Z79.01 Long term (current) use of anticoagulants; Z79.899 Other long term (current) drug therapy; Z95.5 Presence of coronary angioplasty implant and graft; Z98.1 Arthrodesis status; Z68.31 Body mass index [BMI] 31.0-31.9, adult; Z90.49 Acquired absence of other specified parts of digestive tract; Z85.038 Personal history of other malignant neoplasm of large intestine; Z87.891 Personal history of nicotine dependence; Z83.3 Family history of diabetes mellitus; Z82.49 Family history of ischemic heart disease and other diseases of the circulatory system
CPT/HCPCS: 36415; 71045; 80048; 80061; 82040; 83036; 83735; 84443; 84484; 85025; 85610; 93005; 93306; 96374; 96376; G0378; J0153

== ENCOUNTER → 2020-07-25 | Outpatient (CLI) | payer MEDICARE ==
[~2020-07-25] MED LIST changes: +AMLO-150 PO; +APIX5TAB PO; +ATOR-2 PO; +DIGO125T10 PO; +PANT40TA6 PO; +SOTA80TA18 PO
== END | disposition home or self-care (01) ==
LOC: STAR 13:10
PROVIDERS: ATTEND Anesthesiology
DX: Z01.812 Encounter for preprocedural laboratory examination (principal); Z20.828 Contact with and (suspected) exposure to other viral communicable diseases
CPT/HCPCS: 36415; 87635

== ENCOUNTER 2020-07-29 05:59 | Observation (INO) | payer MEDICARE ==
[~2020-07-29] VITALS: Ht 177.8 cm; Wt 110.5 kg
[~2020-07-29 05:59] MED LIST changes: -PANT40TA6 PO
[2020-07-29 06:37] VITALS: BP 157/94
[2020-07-29] MEDS ORDERED: PROPOFOL 50 ML ONE (07:45)
[2020-07-29] MEDS ORDERED: MIDAZOLAM 1 MG/ML, 2ML ONE (07:45)
[2020-07-29] MEDS ORDERED: FENTANYL PF 250 MCG/5ML ONE ×2 (07:45→09:45)
[2020-07-29] MEDS ORDERED: LIDOCAINE 1%, 20ML ONE (08:15)
[2020-07-29] MEDS ORDERED: ROCURONIUM 10MG/ML,5ML ONE (09:46)
[2020-07-29] MEDS ORDERED: HEPARIN 1,000 UNITS/ML, 10ML ONE ×3 (09:46)
[2020-07-29] MEDS ORDERED: DIAZEPAM 5 MG/ML, 2ML IVPush PRN (10:30)
[2020-07-29] MEDS ORDERED: MEPERIDINE/PF 25MG/0.5ML IVPush PRN (10:30)
[2020-07-29] MEDS ORDERED: DIPHENHYDRAMINE 50 MG/ML, 1ML IVPush PRN (10:30)
[2020-07-29] MEDS ORDERED: ACETAMINOPHEN 325 MG TABLET PO PRN (10:30)
[2020-07-29] MEDS ORDERED: EPHEDRINE 50 MG/ML, 1ML IVPush PRN (10:30)
[2020-07-29] MEDS ORDERED: ONDANSETRON 2MG/ML, 2ML IVPush PRN (10:30)
[2020-07-29] MEDS ORDERED: FENTANYL PF 100 MCG/2ML IV PRN (10:30)
[2020-07-29] MEDS ORDERED: LABETALOL 5MG/ML, 20ML IV PRN (10:30)
[2020-07-29] MEDS ORDERED: OXYcodone 5 MG/5 ML ORAL.SOL UDC PO PRN (10:30)
[2020-07-29] MEDS ORDERED: PROMETHAZINE 25 MG/ML, 1ML IVPush PRN (10:30)
[2020-07-29] MEDS ORDERED: EPHEDRINE 50 MG/ML, 1ML IM PRN (10:30)
[2020-07-29] MEDS ORDERED: morphine SULFATE 10 MG/ML, 1ML IVPush PRN (10:30)
[2020-07-29] MEDS ORDERED: SUCCINYLCHOLINE 20 MG/ML, 10ML ONE (11:12)
[2020-07-29] MEDS ORDERED: ONDANSETRON 2MG/ML, 2ML ONE (11:12)
[2020-07-29] MEDS ORDERED: DEXAMETHASONE 4 MG/ML, 1ML ONE (11:12)
[2020-07-29] MEDS ORDERED: ACETAMINOPHEN 500 MG TABLET PO PRN (12:30)
[2020-07-29] MEDS ORDERED: APIXABAN 5 MG TABLET ONE (15:24)
[2020-07-29] MEDS ORDERED: APIXABAN 5 MG TABLET PO ONE (15:30)
[2020-07-29] MEDS: PANTOPRAZOLE 40MG TABLET PO SCH (15:38)
[2020-07-29] MEDS: APIXABAN 5 MG TABLET PO SCH ×2 (15:38→20:07)
[2020-07-29] MEDS: SOTALOL 80MG TABLET PO SCH (18:11)
[2020-07-29 20:06] VITALS: BP 144/66
[2020-07-29] MEDS ORDERED: APIXABAN 5 MG TABLET PO SCH (21:00)
[2020-07-29] MEDS ORDERED: ATORVASTATIN 80 MG TABLET PO SCH (21:00)
[2020-07-29 23:51] VITALS: BP 114/76
[2020-07-30 00:50] VITALS: BP 135/73
[2020-07-30 05:32] VITALS: BP 116/62
[2020-07-30] MEDS: SOTALOL 80MG TABLET PO SCH (05:34)
[2020-07-30] MEDS: PANTOPRAZOLE 40MG TABLET PO SCH (05:34)
[2020-07-30] MEDS: APIXABAN 5 MG TABLET PO SCH (07:39)
[2020-07-30 07:59] VITALS: BP 122/71
[2020-07-30] MEDS ORDERED: AMLODIPINE 5 MG TABLET PO SCH (09:00)
[2020-07-30] MEDS ORDERED: FUROSEMIDE 20 MG TABLET PO SCH (09:00)
[2020-07-30 14:02] VITALS: BP 122/63
[2020-07-30] MEDS ORDERED: PANT40TA6 PO (14:43)
== END 2020-07-30 19:43 | disposition home or self-care (01) ==
LOC: CACL 05:59 → ORIP 12:29 → 5SO 13:51
PROVIDERS: ADMIT Internal Medicine Clinical Cardiac Electrophysiology; ATTEND Internal Medicine Clinical Cardiac Electrophysiology
DX: I48.19 Other persistent atrial fibrillation (principal); I25.10 Atherosclerotic heart disease of native coronary artery without angina pectoris; I49.3 Ventricular premature depolarization; I25.9 Chronic ischemic heart disease, unspecified; I12.9 Hypertensive chronic kidney disease with stage 1 through stage 4 chronic kidney disease, or unspecified chronic kidney disease; E11.22 Type 2 diabetes mellitus with diabetic chronic kidney disease; N18.9 Chronic kidney disease, unspecified; E78.5 Hyperlipidemia, unspecified; Z85.038 Personal history of other malignant neoplasm of large intestine; Z79.899 Other long term (current) drug therapy; Z79.01 Long term (current) use of anticoagulants; Z79.82 Long term (current) use of aspirin
CPT/HCPCS: 85347; 93005; 93308; 93312; 93321; 93325; 93613; 93655; 93656; 93662; C1730; C1732; C1759; C1766; C1893; C1894; G0378; J0330; J1100; J1644; J2250; J2405; J2704; J3010; J3490; 93621